=== PATIENT | female | born 1965 | race Hispanic/Latino ===

== ENCOUNTER 2017-04-08 13:21 | Emergency (ER) | payer MEDICARE ==
[~2017-04-08 13:21] MED LIST: Iopamidol 370 76% 100 ML VIAL ONE
[2017-04-08] MEDS ORDERED: Acetaminophen 500 MG TAB ONE (14:00)
[2017-04-08 14:03] LABS: #Basophils 0.1 thou/uL (0.0-0.2); #Eosinphils 0.2 thou/uL (0.0-0.7); #Lymphocytes 2.9 thou/uL (1.20-3.40); #Monocytes 0.7 thou/uL (0.11-0.59); #Neutrophils 10.1 thou/uL (1.40-6.50); %Basophils 0.8 % (0.0-1.0); %Eosinophils 1.3 % (0.0-10.0); %Lymphocytes 20.9 % (21.0-51.0); Hemoglobin 12.4 g/dL (12.0-16.0); Mean Corpuscular HGB CONC 33.2 g/dL (32.0-36.0); Mean Corpuscular Hemoglobin 28.7 pg (27.0-31.0); Mean Corpuscular Volume 86.6 fl (81.0-99.0); Mean Platelet Volume 6.8 fL (7.4-10.4); Platelet Count 323 thou/uL (130-400)
[2017-04-08 14:18] LABS: Anion Gap 18 mmol/L (10-20); BUN (Urea Nitrogen) 14 mg/dL (9.8-20.1); CRP (Inflammatory) 4.53 mg/dL (= or < 0.5); Calc. Creatinine Clearance 0 mL/min (70-130); Calcium 10.3 mg/dL (7.8-10.44); Carbon Dioxide 17 mmol/L (22-29); Chloride 106 mmol/L (98-107); Estimated GFR-MDRD 47; Glucose 228 mg/dL (70-105); Potassium 3.8 mmol/L (3.5-5.1); Sodium 137 mmol/L (136-145)
[2017-04-08] MEDS ORDERED: Lorazepam 2 MG/ML VIAL ONE (14:48)
[2017-04-08] MEDS ORDERED: Ondansetron HCl/PF 4 MG/2 ML Vial ONE (14:48)
[2017-04-08] MEDS ORDERED: Morphine Sulfate 2 MG/ML SYRINGE ONE (14:48)
--- NOTE | 2017-04-08 15:23 | RAD ---
1 VIEW CHEST: Date: 04/08/17 HISTORY: Sore throat. COMPARISON: 04/09/13. FINDINGS: Portable upright chest demonstrates a normal cardiac silhouette. Pulmonary vessels and hilum are nor mal. No mass. No consolidation. No pneumothorax or osseous abnormalities. IMPRESSION: No acute cardiopulmonary process. POS: [facility]
--- NOTE | 2017-04-08 16:04 | CT ---
POST CONTRAST SOFT TISSUE NECK CT HISTORY: Sore throat. Evaluate for retropharyngeal abscess. COMPARISON: None. TECHNIQUE: Post contrast soft tissue neck CT is performed in the axial plane. Reformatted images are submitted for interpretation. FINDINGS: Stable hypodensity in the anterior left temporal pole, likely due to an arachnoid cyst. The visuali zed brain parenchyma is unremarkable. Bilateral ocular lenses are appropriate located. Both globes are intact. Retrobulbar fat is preser kathleen, Symmetric attenuation of the optic nerve and ocular rectus muscles. There is bilateral ethmoi deepali mucosal thickening. The remaining paranasal sinuses and mastoid air cells are adequate aerated. The aerodigestive tract is patent. No significant fullness of the adenoid tonsils or palatine tonsi ls. No evidence of aerodigestive occlusion or narrowing. Parapharyngeal fat is maintained. There is symmetric attenuation of the submandibular glands. Ther e is atrophy of both parotid glands. The locate technician spaces are unremarkable. Dental amalgam artifact limits evaluation of the oral cavity. Midline fatty raphe of the tongue is preserved. No obvious mass in the oral cavity. The carotid and vertebral arteries are patent throughout their course. No high grade stenosis. There is symmetric attenuation of the sternocleidomastoid muscles. There are scattered nonspecific, nonenlarged bilateral soft tissue neck lymph nodes. There is a bor derline enlarged right level 2 lymph node, measuring 1.5 x 1.3 cm, and a left level 2 lymph node, me asuring 1.4 x 0.9 cm. The upper mediastinum is unremarkable. There are varying degrees of central canal stenosis and fora jackelyn narrowing. The lateral masses of C1 and C2 and the odontoid process are intact. Cervical spine vertebral body height is maintained. There is straightening of cervical lordosis, likely due to patient positionin g or muscle spasm. The upper mediastinum and lung apices are unremarkable. IMPRESSION: 1. No CT evidence of retropharyngeal abscess. 2. Nonspecific, nonenlarged bilateral soft tissue neck lymph nodes. 3. Bilateral borderline left level 2 lymph nodes, likely reactive. POS: [facility]
[2017-04-08] MEDS ORDERED: methylPREDNISolone Sod Succ/PF 125 MG/2 ML VIAL ONE (16:18)
[2017-04-08] MEDS ORDERED: Sodium Chloride 0.9% 100 ML ONE (16:18)
[2017-04-08] MEDS ORDERED: cefTRIAXone\\ROCEPHIN 1 GM VIAL ONE (16:18)
[2017-04-10 16:22] LABS: MONO NEGATIVE CONTROL ZONE White (Negative) (White); MONO POSITIVE CONTROL Pink Line (Positive) (PINK/RED); Mononucleosis NEGATIVE (NEGATIVE)
== END 2017-04-08 17:04 | disposition home or self-care (01) ==
LOC: NAV ERS 13:21
DX: J02.9 Acute pharyngitis, unspecified (principal); I88.9 Nonspecific lymphadenitis, unspecified; I10 Essential (primary) hypertension; E78.5 Hyperlipidemia, unspecified; E11.9 Type 2 diabetes mellitus without complications; F31.9 Bipolar disorder, unspecified; Z79.84 Long term (current) use of oral hypoglycemic drugs; Z79.82 Long term (current) use of aspirin; Z79.899 Other long term (current) drug therapy
CPT/HCPCS: 36415; 70491; 71010; 80048; 85025; 85652; 86140; 86308; 87081; 87430; 96365; 96375; J0696; J2060; J2270; J2405; J2930; J7050